=== PATIENT | female | born 1945 | race Caucasian/White ===

== ENCOUNTER 2017-06-29 05:42 | Inpatient (IN) | payer MEDICAID ==
[2017-06-29] MEDS: ASPIRIN 81 MG TAB PO (07:25)
[2017-06-29 07:47] LABS: ADD MAN DIFF? NO
[2017-06-29 07:49] LABS: BASOPHILS % 0.3 % (0.0-2.0); EOSINOPHILS # 0.1 10^3/ul (0.0-0.5); EOSINOPHILS % 1.2 % (0.0-7.0); HEMATOCRIT 36.7 % (37.0-47.0); HEMOGLOBIN 11.9 g/dl (12.0-16.0); LYMPHOCYTES # 1.1 10^3/ul (0.8-2.9); LYMPHOCYTES % 14.7 % (15.0-51.0); MEAN CORPUSCULAR HEMOGLOBIN 29.5 pg (29.0-33.0); MEAN CORPUSCULAR HGB CONC 32.4 g/dl (32.0-37.0); MEAN CORPUSCULAR VOLUME 91.1 fl (82.0-101.0); MEAN PLATELET VOLUME 11.2 fl (7.4-10.4); MONOCYTE # 0.5 10^3/ul (0.3-0.9); MONOCYTES % 6.6 % (0.0-11.0); NEUTROPHIL # 5.9 10^3/ul (1.6-7.5); NEUTROPHILS % 76.9 % (39.0-77.0); PLATELET COUNT 153 10^3/UL (140-415); RED BLOOD COUNT 4.03 10^6/ul (4.20-5.40); RED CELL DISTRIBUTION WIDTH 13.2 % (11.5-14.5)
[2017-06-29 07:49] LABS: WHITE BLOOD COUNT 7.7 10^3/ul (4.8-10.8)
[2017-06-29 08:11] LABS: ALANINE AMINOTRANSFERASE 38 IU/L (13-69); ALBUMIN 4.1 g/dl (3.3-4.9); ALBUMIN/GLOBULIN RATIO 1.51; ALKALINE PHOSPHATASE 56 IU/L (42-121); ANION GAP 15 (8-16); ASPARTATE AMINO TRANSFERASE 36 IU/L (15-46); BILIRUBIN,INDIRECT 0.4 mg/dl (0-1.1); BILIRUBIN,TOTAL 0.4 mg/dl (0.2-1.3); BLOOD UREA NITROGEN 16 mg/dl (7-20); CARBON DIOXIDE 28 mmol/L (21-31); CHLORIDE 103 mmol/L (97-110); CREATININE 0.73 mg/dl (0.44-1.00); GLUCOSE 131 mg/dl (70-220); LIPASE 121 U/L (23-300); POTASSIUM 4.2 mmol/L (3.5-5.1); SODIUM 142 mmol/L (135-144); TOTAL PROTEIN 6.8 g/dl (6.1-8.1)
[2017-06-29 08:23] LABS: B-TYPE NATRIURETIC PEPTIDE 1320 PG/ML (0-125); TROPONIN-I 0.017 ng/ml (0.00-0.12)
[2017-06-29] MEDS ORDERED: GLUCOSE GEL 15 GRAM TUBE BUCCAL (10:00)
[2017-06-29] MEDS: LOSARTAN 50 MG TAB PO (10:00)
[2017-06-29] MEDS ORDERED: GLUCAGON 1 MG INJ IM (10:00)
[2017-06-29] MEDS: METOPROLOL (XL) 100 MG TAB PO (10:00)
[2017-06-29] MEDS ORDERED: metFORMIN 850 MG TAB PO (10:00)
[2017-06-29] MEDS ORDERED: ENOXAPARIN 40 MG/0.4 ML SYG SC (10:00)
[2017-06-29] MEDS ORDERED: GLUCOSE GEL 15 GRAM TUBE PO ×2 (10:00)
[2017-06-29] MEDS ORDERED: DEXTROSE 50% 50 ML SYRINGE IV ×2 (10:00)
[2017-06-29] MEDS: FUROSEMIDE 20 MG INJ IV ×2 (10:00→17:24)
[2017-06-29] MEDS: FUROSEMIDE 40 MG INJ IV (10:12)
[2017-06-29] MEDS: IOHEXOL 300MG/ML 150 ML BTL (10:26)
[2017-06-29] MEDS: SOD CHLORIDE 0.9% 100 ML (10:26)
[2017-06-29] MEDS: INSULIN ASPART [NOVOLOG] 3 ML PEN SC ×3 (11:50→21:00)
[2017-06-29] MEDS: LINAGLIPTIN 5 MG TABLET PO (13:31)
[2017-06-29] MEDS: APIXABAN 5 MG TABLET PO ×2 (13:31→20:59)
[2017-06-29 14:36] LABS: CREATINE KINASE 42 IU/L (23-200)
[2017-06-29 14:50] LABS: CK INDEX 2.2; CK-MB 0.93 ng/ml (0.0-2.4); TROPONIN-I 0.012 ng/ml (0.00-0.12)
[2017-06-29 20:11] LABS: CREATINE KINASE 47 IU/L (23-200)
[2017-06-29 20:23] LABS: CK INDEX 2.2; CK-MB 1.04 ng/ml (0.0-2.4); TROPONIN-I 0.024 ng/ml (0.00-0.12)
[2017-06-29] MEDS: ATORVASTATIN 10 MG TAB PO (20:59)
[2017-06-30] MEDS: ACCU-CHEK XX (00:52)
[2017-06-30] MEDS: FUROSEMIDE 20 MG INJ IV (05:34)
[2017-06-30] MEDS: INSULIN ASPART [NOVOLOG] 3 ML PEN SC ×4 (07:55→21:00)
[2017-06-30] MEDS: METOPROLOL (XL) 100 MG TAB PO ×2 (08:14→17:57)
[2017-06-30] MEDS: LOSARTAN 50 MG TAB PO (08:59)
[2017-06-30] MEDS: ASPIRIN (EC) 81 MG TAB PO (08:59)
[2017-06-30] MEDS: APIXABAN 5 MG TABLET PO ×2 (08:59→21:04)
[2017-06-30] MEDS: LINAGLIPTIN 5 MG TABLET PO (09:00)
[2017-06-30] MEDS: FUROSEMIDE 40 MG TAB PO (17:35)
[2017-06-30] MEDS: ATORVASTATIN 10 MG TAB PO (21:04)
[2017-07-01] MEDS ORDERED: ZOLPIDEM 5 MG TAB PO (00:37)
[2017-07-01] MEDS: ACCU-CHEK XX (01:40)
[2017-07-01] MEDS: FUROSEMIDE 40 MG TAB PO ×2 (05:32→17:14)
[2017-07-01 06:53] LABS: ADD MAN DIFF? NO
[2017-07-01 06:56] LABS: BASOPHILS % 0.6 % (0.0-2.0); EOSINOPHILS # 0.1 10^3/ul (0.0-0.5); EOSINOPHILS % 1.6 % (0.0-7.0); HEMOGLOBIN 14.5 g/dl (12.0-16.0); LYMPHOCYTES # 1.7 10^3/ul (0.8-2.9); LYMPHOCYTES % 27.6 % (15.0-51.0); MEAN CORPUSCULAR HEMOGLOBIN 29.2 pg (29.0-33.0); MEAN CORPUSCULAR VOLUME 88.7 fl (82.0-101.0); MEAN PLATELET VOLUME 11.3 fl (7.4-10.4); MONOCYTE # 0.7 10^3/ul (0.3-0.9); MONOCYTES % 10.9 % (0.0-11.0); NEUTROPHIL # 3.7 10^3/ul (1.6-7.5); PLATELET COUNT 183 10^3/UL (140-415); RED BLOOD COUNT 4.96 10^6/ul (4.20-5.40)
[2017-07-01 06:56] LABS: WHITE BLOOD COUNT 6.3 10^3/ul (4.8-10.8)
[2017-07-01 07:29] LABS: ANION GAP 19 (8-16); BLOOD UREA NITROGEN 20 mg/dl (7-20); CALCIUM 9.7 mg/dl (8.4-10.2); CARBON DIOXIDE 31 mmol/L (21-31); CHLORIDE 98 mmol/L (97-110); CREATININE 0.78 mg/dl (0.44-1.00); GLUCOSE 156 mg/dl (70-220); MAGNESIUM 1.9 mg/dl (1.7-2.5); POTASSIUM 3.5 mmol/L (3.5-5.1); SODIUM 144 mmol/L (135-144)
[2017-07-01] MEDS: INSULIN ASPART [NOVOLOG] 3 ML PEN SC ×4 (07:55→20:50)
[2017-07-01] MEDS: ASPIRIN (EC) 81 MG TAB PO (08:47)
[2017-07-01] MEDS: LINAGLIPTIN 5 MG TABLET PO (08:47)
[2017-07-01] MEDS: METOPROLOL (XL) 100 MG TAB PO (08:47)
[2017-07-01] MEDS: APIXABAN 5 MG TABLET PO ×2 (08:47→20:57)
[2017-07-01] MEDS: LOSARTAN 50 MG TAB PO (09:54)
[2017-07-01] MEDS: PANTOPRAZOLE (EC) 40 MG TAB PO (12:05)
[2017-07-01] MEDS: SALMETEROL/FLUTICASONE 250/50 INHA INH ×2 (13:58→20:57)
[2017-07-01] MEDS: ATORVASTATIN 10 MG TAB PO (20:57)
[2017-07-02] MEDS: ACCU-CHEK XX (02:41)
[2017-07-02] MEDS: PANTOPRAZOLE (EC) 40 MG TAB PO (06:10)
[2017-07-02] MEDS: FUROSEMIDE 40 MG TAB PO ×2 (06:11→17:12)
[2017-07-02] MEDS: SALMETEROL/FLUTICASONE 250/50 INHA INH ×2 (08:23→21:41)
[2017-07-02] MEDS: METOPROLOL (XL) 100 MG TAB PO (08:24)
[2017-07-02] MEDS: LOSARTAN 50 MG TAB PO (08:25)
[2017-07-02] MEDS: APIXABAN 5 MG TABLET PO ×2 (08:25→21:42)
[2017-07-02] MEDS: LINAGLIPTIN 5 MG TABLET PO (08:25)
[2017-07-02] MEDS: ASPIRIN (EC) 81 MG TAB PO (08:25)
[2017-07-02] MEDS: INSULIN ASPART [NOVOLOG] 3 ML PEN SC ×4 (08:33→21:00)
[2017-07-02] MEDS: ATORVASTATIN 10 MG TAB PO (21:42)
[2017-07-03] MEDS: ACCU-CHEK XX (02:00)
[2017-07-03] MEDS: PANTOPRAZOLE (EC) 40 MG TAB PO (06:26)
[2017-07-03] MEDS: FUROSEMIDE 40 MG TAB PO (06:27)
[2017-07-03 07:50] LABS: ADD MAN DIFF? NO
[2017-07-03 07:53] LABS: BASOPHILS % 0.5 % (0.0-2.0); EOSINOPHILS # 0.1 10^3/ul (0.0-0.5); EOSINOPHILS % 1.2 % (0.0-7.0); HEMATOCRIT 38.5 % (37.0-47.0); HEMOGLOBIN 12.6 g/dl (12.0-16.0); LYMPHOCYTES # 1.6 10^3/ul (0.8-2.9); LYMPHOCYTES % 26.8 % (15.0-51.0); MEAN CORPUSCULAR HEMOGLOBIN 29.4 pg (29.0-33.0); MEAN CORPUSCULAR HGB CONC 32.7 g/dl (32.0-37.0); MEAN PLATELET VOLUME 11.5 fl (7.4-10.4); MONOCYTE # 0.5 10^3/ul (0.3-0.9); NEUTROPHIL # 3.6 10^3/ul (1.6-7.5); NEUTROPHILS % 62.3 % (39.0-77.0); PLATELET COUNT 162 10^3/UL (140-415); RED BLOOD COUNT 4.28 10^6/ul (4.20-5.40); RED CELL DISTRIBUTION WIDTH 13.2 % (11.5-14.5)
[2017-07-03 07:53] LABS: WHITE BLOOD COUNT 5.8 10^3/ul (4.8-10.8)
[2017-07-03] MEDS: INSULIN ASPART [NOVOLOG] 3 ML PEN SC ×2 (07:55→11:50)
[2017-07-03] MEDS: SALMETEROL/FLUTICASONE 250/50 INHA INH (08:09)
[2017-07-03] MEDS: APIXABAN 5 MG TABLET PO (08:10)
[2017-07-03] MEDS: ASPIRIN (EC) 81 MG TAB PO (08:11)
[2017-07-03] MEDS: LINAGLIPTIN 5 MG TABLET PO (08:11)
[2017-07-03] MEDS: METOPROLOL (XL) 100 MG TAB PO (08:11)
[2017-07-03] MEDS: LOSARTAN 50 MG TAB PO (08:12)
[2017-07-03 08:41] LABS: ANION GAP 16 (8-16); BLOOD UREA NITROGEN 29 mg/dl (7-20); CALCIUM 9.2 mg/dl (8.4-10.2); CARBON DIOXIDE 31 mmol/L (21-31); CHLORIDE 98 mmol/L (97-110); CREATININE 0.83 mg/dl (0.44-1.00); GLUCOSE 142 mg/dl (70-220); MAGNESIUM 2.1 mg/dl (1.7-2.5); SODIUM 141 mmol/L (135-144)
== END 2017-07-03 14:25 | disposition home or self-care (01) | DRG 293 ==
LOC: E/R 05:42 → TEL 09:16
DX: I11.0 Hypertensive heart disease with heart failure (principal); I48.0 Paroxysmal atrial fibrillation; E11.9 Type 2 diabetes mellitus without complications; I50.33 Acute on chronic diastolic (congestive) heart failure; R91.8 Other nonspecific abnormal finding of lung field
CPT/HCPCS: 36415; 70450; 70553; 71010; 71260; 80048; 80053; 82550; 82553; 82962; 83690; 83735; 83880; 84484; 85025; 87081; 87400; 93005; 96374; 99285-25; J1940